=== PATIENT | male | born 1990 | race African-American/Black ===

== ENCOUNTER 2023-09-27 13:20 | Emergency (ER) | payer BC, SELFPAY ==
[2023-09-27 15:19] LABS: Influenza A by NAA Not Detected (NotDetected); Influenza B by NAA Not Detected (NotDetected); SARS-CoV-2 NAA Rapid Test Not Detected (NotDetected)
== END 2023-09-27 14:50 | disposition home or self-care (01) ==
LOC: CSHERS 13:20
DX: K40.90 Unilateral inguinal hernia, without obstruction or gangrene, not specified as recurrent (principal); R18.8 Other ascites; J45.909 Unspecified asthma, uncomplicated; Z79.899 Other long term (current) drug therapy
CPT/HCPCS: 87081; 87430; 99283